=== PATIENT | male | born 1965 | race Asian ===

== ENCOUNTER → 2016-12-06 | Outpatient (CLI) | payer BC ==
[~2016-12-06] MED LIST: FLUT0.15 NAE; VNTHFA/IN INH
[2016-12-06 11:19] LABS: CHOLESTEROL/HDL RATIO 7.2
== END | disposition home or self-care (01) ==
LOC: C.LABBC 07:57
PROVIDERS: ATTEND Family Medicine
DX: E78.5 Hyperlipidemia, unspecified (principal)

== ENCOUNTER → 2017-05-09 | Outpatient (CLI) | payer BC ==
[2017-05-09 11:32] LABS: URINE APPEARANCE CLEAR (CLEAR); URINE BILIRUBIN NEG (NEG); URINE COLOR YELLOW; URINE NITRITE NEG (NEG); URINE PH 5.5 (4.5-7.5); URINE SPECIFIC GRAVITY 1.024 (1.000-1.030); UROBILINOGEN NEG (NEG)
[2017-05-09 11:35] LABS: MANUAL MICROSCOPIC REQUIRED? NO; REVIEW REQ? NO
== END | disposition home or self-care (01) ==
LOC: C.LABBC 08:04
PROVIDERS: ATTEND Physician Assistant
DX: Z00.00 Encounter for general adult medical examination without abnormal findings (principal); R36.1 Hematospermia

== ENCOUNTER → 2017-10-03 | Outpatient (CLI) | payer OTHER ==
--- NOTE | 2017-10-03 12:38 | DIAGNOSTIC IMAGING REPORT ---
ULTRASOUND TESTES AND SCROTUM CLINICAL HISTORY: Left testicular pain. COMPARISON STUDY: No priors. TECHNIQUE: Real-time, grayscale, and color Doppler sonography of the testes and scrotum is performed. Images are reviewed in the transverse and longitudinal planes. FINDINGS: The testes are normal in size and homogeneous in echotexture. The right testis measures 4.3 x 2.0 x 2.8 cm and the left testis measures 4.5 x 1.7 x 2.8 cm. No intratesticular mass is seen. Testicular blood flow is normal and symmetric. Normal Doppler waveforms are identified in both testes. The epididymal heads are normal in appearance. The right epididymal head measures 0.9 cm in length and the left epididymal head measures 1.3 cm in length. Small bilateral epididymal head cysts measure up to 2 mm. No varicocele or hydrocele is seen. A clip versus scrotal gideon is noted on the right the right scrotum. IMPRESSION: No acute sonographic abnormality is identified involving the testes or scrotum. Electronically signed by: Lowell Pineda M.D. 10/03/2017 12:37 PM Dictated Date/Time: 10/03/2017 12:35 PM
== END | disposition home or self-care (01) ==
LOC: C.ULTRBC 11:58
PROVIDERS: ATTEND Nurse Practitioner
DX: N50.812 Left testicular pain (principal)